=== PATIENT | female | born 1965 | race Caucasian/White ===

== ENCOUNTER 2022-03-24 12:58 | Emergency (ER) | payer BC ==
[~2022-03-24] VITALS: Ht 167.6 cm; Wt 131.8 kg
[2022-03-24 13:02] VITALS: TEMP 98.2
[2022-03-24 14:38] VITALS: BP 122/77; PULSE 77
== END 2022-03-24 14:40 | disposition home or self-care (01) ==
LOC: COL.ER 12:58
DX: S63.282A Dislocation of proximal interphalangeal joint of right middle finger, initial encounter (principal); S80.212A Abrasion, left knee, initial encounter; Z23 Encounter for immunization; W01.0XXA Fall on same level from slipping, tripping and stumbling without subsequent striking against object, initial encounter